=== PATIENT | male | born 1965 | race African-American/Black ===

== ENCOUNTER 2021-02-06 05:14 | Emergency (ER) | payer BC ==
--- OUTSIDE RECORDS SUMMARY | 2021-02-06 05:17 | XMS REPORT | Continuity of Care Document ---
:1965 Author Organization [facility] t Address [address] [place] [id number] Care Team Providers Name Role Phone Only, Test Attending Clinician Unavailable Doctor Unassigned, Name Attending Clinician Unavailable Problems Condition Condition Condition Status Onset Resolution Last Treating Co mments Source Name Details Category Date Date Treatment Clinician Date Type 2 Type 2 Problem Active [facility] diabetes Diabetes 1-29 Family mellitus Mellitus 00:00: Practi c 00 e Foot Foot Problem Active [facility] callus Callus 1-29 Family 00:00: Practic 00 e Clinical Clinical Problem Active [place] [facility] finding Finding 1-21 Family 00:00: Practic 00 e General General Problem Active [facility] finding of Finding of 1-21 [facility] observatio Observatio 00:00: Pr actic n of n of 00 e patient Patient Mixed Mixed Problem Active 2018-09 [facility] hyperlipid Hyperlipid 0-21 [facility] emia 00:00: Practic 00 e Body mass Body Mass Problem Active 2018-09 Nancy ashleigh index 30+ Index 30+ 0-21 Fami ly - obesity - Obesity 00:00: Prac tic e Clinical Clinical Problem Active 2018-09 [place] ge finding Finding 0-21 Family 00:00: Practic 00 e Hyperlipid Hyperlipid Problem Active 2016-09 [facility] emia emia 2-12 Family 00:00: Practic 00 e Hypertensi Hypertensi Problem Active 2016-09 [facility] ve ve 2-12 Family disorder Disorder 00:00: Practi c 00 e Allergies, Adverse Reactions, Alerts This patient has no known allergies or adverse reactions. Social History Smoking Status Start Date Stop Date Source Never Smoker [facility] Medications Ordered Filled Start Stop Current Ordering Indication Dosage Frequency Signature Comments Components Source Medication Medication Date Date Medication? Clinician (SIG) Name Name Contour Contour No Contour [facility] Next EZ Next EZ Next EZ Family Meter kit Meter kit Meter kit Practic e Contour Contour No Contour [facility] e Next Test Next Test Next Test Family Strips Strips Strips Practic e Contour Contour No Contour Vill[facility] e Next Test Next Test Next Test [facility] Strips Strips [facility] No 1 Q1D [facility] 10 [facility] mg tablet mg tablet mg tablet Family Take 1 Take 1 Take 1 Practic tablet tablet tablet e every day every day every day by oral by oral by oral route in route in route in the morning the morning the for 90 for 90 morning days. days. for 90 days. hydrocortis hydrocortis No hydrocorti [facility] one one sone Family butyrate butyrate butyrate Pra ctic 0.1 % 0.1 % 0.1 % e lotion lotion lotion Janumet 50 Janumet 50 No Janumet 50 [facility] mg-1,000 mg mg-1,000 mg mg-1,000 Family tablet Take tablet Take mg tablet Practic 1 tablet 1 tablet Take 1 e twice a day twice a day tablet by oral by oral twice a route for route for day by 90 days. 90 days. oral route for 90 days. Lantus Lantus No [facility] jatin[facility] U-100 U-100 U-100 Practic Insulin 100 Insulin 100 Insulin e unit/mL (3 unit/mL (3 100 mL) mL) unit/mL (3 subcutaneou subcutaneou mL) s pen s pen subcutaneo Inject 30 Inject 30 us pen units by units by Inject 30 subcutaneou subcutaneou units by s route in s route in subcutaneo the evening the evening us route for 90 for 90 in the days. days. evening for 90 days. losartan losartan No losartan Nancy ashleigh 100 mg 100 mg 100 mg Family tablet Take tablet Take tablet Practic 1 tablet 1 tablet Take 1 e every day every day tablet by oral by oral every day route. route. by oral route. naproxen naproxen No naproxen Nancy ashleigh 125 mg/5 mL 125 mg/5 mL 125 mg/5 Family oral oral mL oral Practic suspension suspension suspension e orphenadrin orphenadrin No orphenadri [facility] e-ASA-caffe e-ASA-caffe ne-ASA-caf Family ine 50 ine 50 feine 50 Practic mg-770 mg-770 mg-770 e mg-60 mg mg-60 mg mg-60 mg tablet tablet tablet simvastatin simvastatin No 1 Q1D radha [facility] 20 mg 20 mg n 20 mg Family tablet Take tablet Take tablet Practic 1 tablet 1 tablet Take 1 e every day every day tablet by oral by oral every day route. route. by oral route. Trulicity 3 Trulicity 3 No Trulicity [facility] mg/0.5 mL mg/0.5 mL 3 mg/0.5 F amily subcutaneou subcutaneou mL P ractic s pen s pen subcutaneo e injector injector us pen Inject 3 mg Inject 3 mg injector every week every week Inject 3 by by mg every subcutaneou subcutaneou week by s route as s route as subcutaneo directed directed us route for 90 for 90 as days. days. directed for 90 days. Vital Signs Vital Name Observation Time Observation Value Comments Source BP Diastolic 2020-11-11 00:00:00 77 mm[Hg] [facility] Height 2020-11-11 00:00:00 69 [in_i] [facility] BMI (Body Mass 2020-11-11 00:00:00 36.1 kg/m2 [facility] Family Index) Practice BP Systolic 2020-11-11 00:00:00 112 mm[Hg] [facility] Body Weight 2020-11-11 00:00:00 244.6 [lb_av] [facility] BP Diastolic 2020-09-30 00:00:00 83 mm[Hg] [facility] Height 2020-09-30 00:00:00 69 [in_i] [facility] BMI (Body Mass 2020-09-30 00:00:00 35.3 kg/m2 [facility] Family Index) Practice BP Systolic 2020-09-30 00:00:00 116 mm[Hg] [facility] Body Weight 2020-09-30 00:00:00 239.2 [lb_av] [facility] Procedures This patient has no known procedures. Plan of Care Planned Activity Planned Date Details Comments Source Diagnostic Test 2020-11-11 glucose, fingerstick, Nancy ashleigh Family Pending 00:00:00 blood [code = Practice glucose, fingerstick, blood] Diagnostic Test 2020-11-11 hemoglobin A1C, Jo Ann martinez Pending 00:00:00 fingerstick [code = Practice hemoglobin A1C, fingerstick] Diagnostic Test 2020-11-11 CBC w/ auto diff Jo Ann Alvarez Pending 00:00:00 [code = CBC w/ auto Practice diff] Diagnostic Test 2020-11-11 CMP, serum or plasma [facility] Pending 00:00:00 [code = CMP, serum or Practi ce plasma] Diagnostic Test 2020-11-11 microalbumin/creatini Nancy Alvarez Pending 00:00:00 ne, mass ratio, urine Practi ce [code = microalbumin/creatini ne, mass ratio, urine] Diagnostic Test 2020-11-11 TSH, serum or plasma [facility] Pending 00:00:00 [code = TSH, serum or Practi ce plasma] Diagnostic Test 2020-11-11 T4, free, serum [code Nancy Alvarez Pending 00:00:00 = T4, free, serum] Practice Diagnostic Test 2020-11-11 lipid panel, serum Praveena surinder Alvarez Pending 00:00:00 [code = lipid panel, Practic e serum] Diagnostic Test 2020-11-11 diabetes panel, serum Nancy Alvarez Pending 00:00:00 [code = diabetes Practice panel, serum] Diagnostic Test 2020-11-11 C-peptide, serum Jo Ann Alvarez Pending 00:00:00 [code = C-peptide, Practice serum] Future Appointment 2021-02-10 Blazemario Reed [id number] Jo Ann Alvarez 08:15:00 [place]; Practice [address], [place] [address] Future Appointment 2021-02-10 Tamera Pruett 00:00:00 [place]; Practice [address], [place] [address] Encounters Start End Encounter Admission Attending Care Care Encounter Source Date/Time Date/Time Type Type Clinicians Facility Department ID 2020-11-11 2020-11-11 Blaze KEN [place] - [id number] [facility] 00:00:00 00:00:00 [facility] Brea Reed - Alisia diaz MD: [id number] VM_CAN_Rohit e [place] [address] [address], [place] [address] , Ph. 2020-09-30 2020-09-30 [facility] [place] - [id number] [facility] 00:00:00 [facility], [facility] - Alisia diaz MD: [id number] VM_CAN_Rohit e [place] [address] [address], [place] [address] , Ph. 2020-07-13 2020-07-13 Laboratory Only, Adc [facility] [id number] 12:04:09 12:19:09 Only Test [place] [id number] [place] [id number] [place] [id number] 2020-07-13 2020-07-13 Orders Doctor TIMMY [id number] 00:00:00 00:00:00 Only Unassigned, DANNIE [id number] [place] [facility] [id number] Results Test Description Test Time Test Comments Results Result Comments Source Hemoglobin A1c measurement device panel 2020-11-11 11:59:52 Test Item Value Reference Range Interpretation Comme nts Hemoglobin A1C Fingerstick: (test code = Hemoglobin A1C Fingerstick :) 7.8 [facility] [id number] 11:59:52 Test Item Value Reference Range Interpretation Comments Hemoglobin A1C Fingerstick: (test code 7.8 = Hemoglobin A1C Fingerstick:) [facility]
--- NOTE | 2021-02-06 06:14 | ER ---
Nurse's Notes [facility] Name: Blake Chacon Jr Age: 55 yrs Sex: Male : 1965 Arrival Date: 02/06/2021 Time: 05:18 Bed 20 Private MD: Abner Todd B Diagnosis: Cellulitis of right upper limb Presentation: 02/06 05:52 Chief complaint: Patient states: he has a rash to his right arm x 1 week which is bb irritating and itchy and is getting hard. Coronavirus screen: At this time, the client does not indicate any symptoms associated with coronavirus-19. Ebola Screen: No symptoms or risks identified at this time. Initial Sepsis Screen: Does the patient meet any 2 criteria? No. Patient's initial sepsis screen is negative. Does the patient have a suspected source of infection? No. Patient's initial sepsis screen is negative. Risk Assessment: Do you want to hurt yourself or someone else? Patient reports no desire to harm self or others. Onset of symptoms was January 2021. 05:52 Method Of Arrival: Ambulatory bb 05:52 Acuity: [id number] 5 bb Triage Assessment: 05:55 General: Appears in no apparent distress. Behavior is calm, cooperative. Pain: Denies bb pain. Neuro: Level of Consciousness is awake, alert, obeys commands, Oriented to person, place, time, situation. Cardiovascular: Capillary refill < 3 seconds Patient's skin is warm and dry. Respiratory: Airway is patent Respiratory effort is even, unlabored, Respiratory pattern is regular. GI: No signs and/or symptoms were reported involving the gastrointestinal system. Derm: Rash noted that is itchy, on right arm. Musculoskeletal: Circulation, motion, and sensation intact. Historical: - Allergies: 05:55 No Known Allergies; bb - Home Meds: 05:55 Simvastatin Oral [Active]; losartan oral oral [Active]; diabetes medication [Active]; bb - PMHx: 05:55 Diabetes - NIDDM; Hypertension; Hyperlipidemia; bb - PSHx: 05:55 bilateral rotator cuff; bb - Immunization history:: Adult Immunizations up to date. - Social history:: Smoking status: Patient denies any tobacco usage or history of. Patient uses alcohol, occasionally. Patient/guardian denies using street drugs. Screenin:56 Abuse screen: Denies threats or abuse. Nutritional screening: No deficits noted. bb Tuberculosis screening: No symptoms or risk factors identified. Fall Risk None identified. Assessment: 05:56 Reassessment: No changes from previously documented assessment. see triage assessment. bb Vital Signs: 05:52 BP 119 / 79; Pulse 70; Resp 16 S; Temp 98.9(O); Pulse Ox 94% on R/A; Weight 115.21 kg bb (R); Height 5 ft. 9 in. (175.26 cm) (R); Pain 0/10; 05:52 Body Mass Index 37.51 (115.21 kg, 175.26 cm) ED Course: 05:18 Patient arrived in ED. es 05:19 Abner Todd MD is Private Physician. es 05:53 Triage completed. bb 05:56 Primo Portillo MD is Attending Physician. tw4 05:56 Arm band placed on Patient placed in an exam room, on a stretcher, on pulse oximetry. bb Family accompanied patient. 05:56 Patient has correct armband on for positive identification. Bed in low position. Call bb light in reach. Adult w/ patient. Pulse ox on. NIBP on. 06:13 Abner Todd MD is Referral Physician. tw4 06:23 Yoni Velázquez is Primary Nurse. ak2 Administered Medications: 06:18 Drug: TORadol (ketorolac) 60 mg Route: IM; Site: left gluteus; ak2 06:19 Drug: Clindamycin 600 mg Route: IM; Site: right gluteus; ak2 Outcome: 06:14 Discharge ordered by . tw4 06:23 Discharged to home ambulatory. ak2 06:23 Condition: good 06:23 Discharge instructions given to patient, Prescriptions given X 1. 06:24 Patient left the ED. ak2 Signatures: Vijaya Kirkpatrick Brenda, RN RN Primo Portillo MD MD [facility] Yoni Velázquez ak2
--- NOTE | 2021-02-06 06:14 | EDPHYS ---
Physician Documentation [facility] Name: Blake Chacon Jr Age: 55 yrs Sex: Male : 1965 Arrival Date: 02/06/2021 Time: 05:18 Bed 20 Private MD: Abner Todd B ED Physician Primo Portillo Historical: - Allergies: 02/06 05:55 No Known Allergies; bb - Home Meds: 05:55 Simvastatin Oral [Active]; losartan oral oral [Active]; diabetes medication [Active]; bb - PMHx: 05:55 Diabetes - NIDDM; Hypertension; Hyperlipidemia; bb - PSHx: 05:55 bilateral rotator cuff; bb - Immunization history:: Adult Immunizations up to date. - Social history:: Smoking status: Patient denies any tobacco usage or history of. Patient uses alcohol, occasionally. Patient/guardian denies using street drugs. Vital Signs: 05:52 BP 119 / 79; Pulse 70; Resp 16 S; Temp 98.9(O); Pulse Ox 94% on R/A; Weight 115.21 kg bb (R); Height 5 ft. 9 in. (175.26 cm) (R); Pain 0/10; 05:52 Body Mass Index 37.51 (115.21 kg, 175.26 cm) bb MDM: 05:56 Patient medically screened. tw4 Administered Medications: 06:18 Drug: TORadol (ketorolac) 60 mg Route: IM; Site: left gluteus; ak2 06:19 Drug: Clindamycin 600 mg Route: IM; Site: right gluteus; ak2 Disposition: 02/06/21 06:14 Discharged to Home. Impression: Cellulitis of right upper limb. - Condition is Stable. - Discharge Instructions: Cellulitis, Adult. - Prescriptions for Cleocin 300 mg Oral Capsule - take 1 capsule by ORAL route every 6 hours for 10 days; 40 capsule. - Medication Reconciliation Form, Thank You Letter, Antibiotic Education, Prescription Opioid Use form. - Follow up: Abner Todd MD; When: Upon discharge from the Emergency Department; Reason: Recheck today's complaints, Continuance of care, Re-evaluation by your physician. - Problem is new. - Symptoms are unchanged. Signatures: Mckayla Miller RN RN Primo Copeland MD MD tw4 NorrisdebbieYoni chiu ak2 Corrections: (The following items were deleted from the chart) 06:24 06:14 02/06/2021 06:14 Discharged to Home. Impression: Cellulitis of right upper limb. ak2 Condition is Stable. Forms are Medication Reconciliation Form, Thank You Letter, Antibiotic Education, Prescription Opioid Use. Follow up: Abner Todd; When: Upon discharge from the Emergency Department; Reason: Recheck today's complaints, Continuance of care, Re-evaluation by your physician. Problem is new. Symptoms are unchanged. tw4
[2021-02-06] MEDS ORDERED: CLINDAMYCIN IV 150 MG/ML (4 mL) VIAL ONE (06:37)
[2021-02-06] MEDS ORDERED: KETOROLAC 30 MG/ML INJ ONE (06:38)
[2021-02-06 06:47] VITALS: BP 119/79; TEMP 98.9; O2SAT 94
== END 2021-02-06 06:24 | disposition home or self-care (01) ==
LOC: ER 05:14
DX: L03.113 Cellulitis of right upper limb (principal); E11.9 Type 2 diabetes mellitus without complications; I10 Essential (primary) hypertension; E78.5 Hyperlipidemia, unspecified
CPT/HCPCS: 96372; 99283; S0077